=== PATIENT | male | born 1945 | race Caucasian/White ===

== ENCOUNTER 2017-09-30 10:22 | Inpatient (IN) | payer OTHER, MEDICARE ==
[2017-09-30] MEDS ORDERED: Ibuprofen 200 MG Tab PO PRN (12:27)
[2017-09-30] MEDS ORDERED: Sodium Chloride 0.9% 10 ML Syringe FLUSH PRN (12:27)
[2017-09-30] MEDS ORDERED: Temazepam 15 MG Cap PO PRN (12:27)
[2017-09-30] MEDS ORDERED: Acetaminophen 325 MG Tab PO PRN (12:27)
[2017-09-30] MEDS ORDERED: NS + KCl 20mEq/L 1,000 ML IV SCH (12:30)
[2017-09-30] MEDS: Gabapentin 300 MG Cap PO SCH ×2 (13:15→20:03)
[2017-09-30] MEDS: Clindamycin Phosphate in D5W 300 MG in Premix Bag 1 BAG IV SCH ×4 (13:26→18:24)
[2017-09-30 13:34] LABS: CHLORIDE,CL 97 mEq/L (98-106); SODIUM,NA 133 mEq/L (136-145)
[2017-09-30] MEDS: Sodium Chloride 0.9% 1,000 ML IV SCH (14:24)
[2017-09-30] MEDS: Enoxaparin 40 MG/0.4 ML Syringe SUBCUT SCH (14:26)
[2017-09-30] MEDS ORDERED: METFORMIN HCL PO SCH (20:00)
[2017-09-30] MEDS ORDERED: GLYBURIDE PO SCH (20:00)
[2017-10-01] MEDS: Clindamycin Phosphate in D5W 300 MG in Premix Bag 1 BAG IV SCH ×8 (00:23→17:59)
[2017-10-01] MEDS: Sodium Chloride 0.9% 1,000 ML IV SCH ×2 (04:22→20:10)
[2017-10-01 07:19] LABS: CHLORIDE,CL 103 mEq/L (98-106); SODIUM,NA 136 mEq/L (136-145)
[2017-10-01] MEDS: Lisinopril 10 MG Tab PO SCH (07:37)
[2017-10-01] MEDS: Levothyroxine 112 MCG Tab PO SCH (07:37)
[2017-10-01] MEDS: Gabapentin 300 MG Cap PO SCH ×3 (07:37→20:09)
[2017-10-01] MEDS: Aspirin 81 MG Tab.Chew PO SCH (07:37)
[2017-10-01] MEDS ORDERED: metFORMIN 500 MG Tab PO SCH (08:00)
[2017-10-01] MEDS ORDERED: glyBURIDE 5 MG Tab PO SCH (08:00)
[2017-10-01] MEDS: Hydrocortisone 1% Crm 30 GM Tube TOP PRN (10:47)
[2017-10-01] MEDS: Enoxaparin 40 MG/0.4 ML Syringe SUBCUT SCH (11:45)
--- NOTE | 2017-10-01 14:58 | PCM.PN ---
- General Info Date of Service: 10/01/17 Functional Status: Reports: Pain Controlled, Tolerating Diet, Ambulating - Review of Systems General: Denies: Fever, Weakness, Fatigue HEENT: Reports: No Symptoms Pulmonary: Denies: Shortness of Breath, Cough Cardiovascular: Denies: Chest Pain, Edema, Lightheadedness Gastrointestinal: Denies: Abdominal Pain, Nausea, Vomiting Genitourinary: Reports: No Symptoms Musculoskeletal: Reports: Leg Pain Skin: Reports: Other (redness to RLE) Neurological: Reports: No Symptoms - Patient Data Vitals - Most Recent: Last Vital Signs Temp 97.7 F 10/01/17 11:52 Pulse 68 10/01/17 11:52 Resp 18 10/01/17 11:52 BP 127/75 10/01/17 11:52 Pulse Ox 100 10/01/17 11:52 Weight - Most Recent: 219 lb 5.759 oz I&O - Last 24 Hours: Intake & Output 09/30/17 10/01/17 10/01/17 22:59 06:59 14:59 Intake Total 50 1100 Balance 50 1100 Lab Results Last 24 Hours: Laboratory Results - last 24 hr 09/30/17 10/01/17 10/01/17 Range/Units 16:56 07:05 07:05 WBC 8.2 (5.0-10.0) 10^3/uL RBC 3.99 L (4.50-6.00) 10^6/uL Hgb 11.8 L (14.0-18.0) g/dL Hct 35.1 L (40.0-54.0) % MCV 88.0 (82.0-94.0) fL MCH 29.6 (27.0-32.0) pg MCHC 33.6 (33.0-38.0) g/dL RDW Coeff of Kate 12.6 (11.0-15.0) % Plt Count 348 (150-400) 10^3/uL Neut % (Auto) 77.6 (35-85) % Lymph % (Auto) 13.7 (10-55) % [place] % (Auto) 7.0 (0-16) % Eos % (Auto) 1.2 (0-5) % Baso % (Auto) 0.5 (0-3) % Neut # (Auto) 6.36 (1.80-7.00) 10^3/uL Lymph # (Auto) 1.12 (1.00-4.80) 10^3/uL [place] # (Auto) 0.57 (0.00-0.80) 10^3/uL Eos # (Auto) 0.10 (0.00-0.45) 10^3/uL Baso # (Auto) 0.04 10^3/uL Sodium 136 (136-145) mEq/L Potassium 5.2 H (3.5-5.0) mEq/L Chloride 103 (98-106) mEq/L Carbon Dioxide 31 (21-32) mmol/L BUN 16 (7-18) mg/dL Creatinine 1.0 (0.7-1.3) mg/dL Est Cr Clr Drug Dosing 89.33 mL/min Estimated GFR (MDRD) > 60 (>=60) mL/min Glucose 180 H D (75-99) mg/dL POC Glucose 277 H (75-105) mg/dl Calcium 8.4 (8.4-10.1) mg/dL C-Reactive Protein 0.7 (0.2-0.8) mg/dL 10/01/17 10/01/17 Range/Units 07:37 11:44 WBC (5.0-10.0) 10^3/uL RBC (4.50-6.00) 10^6/uL Hgb (14.0-18.0) g/dL Hct (40.0-54.0) % MCV (82.0-94.0) fL MCH (27.0-32.0) pg MCHC (33.0-38.0) g/dL RDW Coeff of Kate (11.0-15.0) % Plt Count (150-400) 10^3/uL Neut % (Auto) (35-85) % Lymph % (Auto) (10-55) % [place] % (Auto) (0-16) % Eos % (Auto) (0-5) % Baso % (Auto) (0-3) % Neut # (Auto) (1.80-7.00) 10^3/uL Lymph # (Auto) (1.00-4.80) 10^3/uL [place] # (Auto) (0.00-0.80) 10^3/uL Eos # (Auto) (0.00-0.45) 10^3/uL Baso # (Auto) 10^3/uL Sodium (136-145) mEq/L Potassium (3.5-5.0) mEq/L Chloride (98-106) mEq/L Carbon Dioxide (21-32) mmol/L BUN (7-18) mg/dL Creatinine (0.7-1.3) mg/dL Est Cr Clr Drug Dosing mL/min Estimated GFR (MDRD) (>=60) mL/min Glucose (75-99) mg/dL POC Glucose 195 H 224 H (75-105) mg/dl Calcium (8.4-10.1) mg/dL C-Reactive Protein (0.2-0.8) mg/dL Med Orders - Current: Current Medications Acetaminophen (Tylenol) 650 mg PO Q4H PRN PRN Reason: Pain (Mild 1-3)/fever Aspirin (Aspirin) 81 mg PO DAILY [facility] Last Admin: 10/01/17 07:37 Dose: 81 mg Enoxaparin Sodium (Lovenox) 40 mg SUBCUT DAILY@1200 [facility] Last Admin: 10/01/17 11:45 Dose: 40 mg Gabapentin (Neurontin) 300 mg PO TID [facility] Last Admin: 10/01/17 14:47 Dose: 300 mg Glyburide (Micronase) 10 mg PO BID [facility] Hydrocortisone (Hydrocortisone 1% Crm) 0 gm TOP ASDIRECTED PRN PRN Reason: Itching Last Admin: 10/01/17 10:47 Dose: 1 applic Clindamycin Phosphate 300 mg/ (Premix) 50 mls @ 100 mls/hr IV Q6H [facility] Last Admin: 10/01/17 11:45 Dose: 100 mls/hr Sodium Chloride (Normal Saline) 1,000 mls @ 75 mls/hr IV ASDIRECTED [facility] Last Admin: 10/01/17 04:22 Dose: 75 mls/hr Ibuprofen (Motrin) 400 mg PO Q6H PRN PRN Reason: Pain (mild 1-3) Levothyroxine Sodium (Levothyroxine) 112 mcg PO DAILY [facility] Last Admin: 10/01/17 07:37 Dose: 112 mcg Lisinopril (Prinivil) 10 mg PO DAILY [facility] Last Admin: 10/01/17 07:37 Dose: 10 mg Metformin HCl (Glucophage) 1,000 mg PO BID [facility] Sodium Chloride (Saline Flush) 10 ml FLUSH ASDIRECTED PRN PRN Reason: Keep Vein Open Temazepam (Restoril) 15 mg PO BEDTIME PRN PRN Reason: Sleep Discontinued Medications Glyburide (Micronase) 5 mg PO DAILY [facility] Last Admin: 10/01/17 07:37 Dose: 5 mg Potassium Chloride/Sodium Chloride (Normal Saline With 20 Meq Kcl) 1,000 mls @ 75 mls/hr IV ASDIRECTED [facility] Last Admin: 09/30/17 13:22 Dose: 75 mls/hr Metformin HCl (Glucophage) 500 mg PO DAILY [facility] Last Admin: 10/01/17 07:37 Dose: 500 mg Non-Formulary Medication (Glyburide/Metformin Hcl [Glucovance 5-500 Mg]) 2 each PO BID [facility] - Exam General: Alert, Oriented HEENT: Mucous Membr. Moist/[place] Neck: Supple Lungs: Clear to Auscultation, Normal Respiratory Effort Cardiovascular: Regular Rate, Regular Rhythm GI/Abdominal Exam: Normal Bowel Sounds, Soft, Non-Tender Extremities: Other (redness is mildly improved from yesterday, nontender. Does have venous stasis changes to leg) Neurological: No New Focal Deficit - Problem List & Annotations (1) Cellulitis of right leg SNOMED Code(s): 428401746 Code(s): L03.115 - CELLULITIS OF RIGHT LOWER LIMB Status: Acute Priority : High Current Visit: Yes - Problem List Review Problem List Initiated/Reviewed/Updated: Yes - My Orders Last 24 Hours: My Active Orders 10/01/17 09:02 Hydrocortisone [Hydrocortisone 1% Crm] 0 gm TOP ASDIRECTED PRN 10/01/17 20:00 glyBURIDE [Micronase] 10 mg PO BID metFORMIN [Glucophage] 1,000 mg PO BID 10/02/17 05:11 BASIC METABOLIC PANEL,BMP [CHEM] AM C-REACTIVE PROTEIN [CHEM] AM CBC WITH AUTO DIFF [HEME] AM - Assessment Assessment:: RLE Cellulitis - Plan Plan:: Patient doing well. Afebrile. Has mild pain in his right leg. Area of redness on leg has improved from yesterday. Nontender. Is ambulating well without difficulty. Labs are stable. WBC is 8.2, CRP 0.7. Will continue IV Cleocin. Elevate leg. Repeat labs in am.
[2017-10-01] MEDS: glyBURIDE 5 MG Tab PO SCH (18:00)
[2017-10-01] MEDS: metFORMIN 500 MG Tab PO SCH (18:00)
[2017-10-02] MEDS: Clindamycin Phosphate in D5W 300 MG in Premix Bag 1 BAG IV SCH ×10 (00:29→23:58)
[2017-10-02 07:09] LABS: CHLORIDE,CL 103 mEq/L (98-106); SODIUM,NA 136 mEq/L (136-145)
[2017-10-02] MEDS: Levothyroxine 112 MCG Tab PO SCH (07:32)
[2017-10-02] MEDS: Lisinopril 10 MG Tab PO SCH (07:33)
[2017-10-02] MEDS: Aspirin 81 MG Tab.Chew PO SCH (07:33)
[2017-10-02] MEDS: metFORMIN 500 MG Tab PO SCH ×2 (07:33→17:20)
[2017-10-02] MEDS: glyBURIDE 5 MG Tab PO SCH ×2 (07:34→17:20)
[2017-10-02] MEDS: Gabapentin 300 MG Cap PO SCH ×3 (07:34→19:50)
[2017-10-02] MEDS: Hydrocortisone 1% Crm 30 GM Tube TOP PRN (10:07)
--- NOTE | 2017-10-02 12:09 | PCM.PN ---
- General Info Date of Service: 10/02/17 Admission Dx/Problem (Free Text): Cellulitis to RLE Functional Status: Reports: Pain Controlled, Tolerating Diet, Ambulating - Review of Systems General: Denies: Fever, Weakness, Fatigue HEENT: Reports: No Symptoms Pulmonary: Reports: No Symptoms Cardiovascular: Reports: No Symptoms Musculoskeletal: Reports: Leg Pain Skin: Reports: Dryness, Other (redness improving to leg) Neurological: Reports: No Symptoms - Patient Data Vitals - Most Recent: Last Vital Signs Temp 97.7 F 10/02/17 07:43 Pulse 68 10/02/17 07:43 Resp 18 10/02/17 07:43 BP 121/65 10/02/17 07:43 Pulse Ox 98 10/02/17 07:43 Weight - Most Recent: 219 lb 5.759 oz I&O - Last 24 Hours: Intake & Output 10/01/17 10/02/17 10/02/17 22:59 06:59 14:59 Intake Total 1050 50 Balance 1050 50 Lab Results Last 24 Hours: Laboratory Results - last 24 hr 10/01/17 10/02/17 10/02/17 Range/Units 16:56 06:50 06:50 WBC 7.1 (5.0-10.0) 10^3/uL RBC 3.92 L (4.50-6.00) 10^6/uL Hgb 11.5 L (14.0-18.0) g/dL Hct 34.9 L (40.0-54.0) % MCV 89.0 (82.0-94.0) fL MCH 29.3 (27.0-32.0) pg MCHC 33.0 (33.0-38.0) g/dL RDW Coeff of Kate 12.7 (11.0-15.0) % Plt Count 327 (150-400) 10^3/uL Neut % (Auto) 72.7 (35-85) % Lymph % (Auto) 16.5 (10-55) % [place] % (Auto) 8.3 (0-16) % Eos % (Auto) 1.8 (0-5) % Baso % (Auto) 0.7 (0-3) % Neut # (Auto) 5.19 (1.80-7.00) 10^3/uL Lymph # (Auto) 1.18 (1.00-4.80) 10^3/uL [place] # (Auto) 0.59 (0.00-0.80) 10^3/uL Eos # (Auto) 0.13 (0.00-0.45) 10^3/uL Baso # (Auto) 0.05 10^3/uL Sodium 136 (136-145) mEq/L Potassium 4.9 (3.5-5.0) mEq/L Chloride 103 (98-106) mEq/L Carbon Dioxide 31 (21-32) mmol/L BUN 17 (7-18) mg/dL Creatinine 1.0 (0.7-1.3) mg/dL Est Cr Clr Drug Dosing 89.33 mL/min Estimated GFR (MDRD) > 60 (>=60) mL/min Glucose 166 H (75-99) mg/dL POC Glucose 243 H (75-105) mg/dl Calcium 8.3 L (8.4-10.1) mg/dL C-Reactive Protein 0.8 (0.2-0.8) mg/dL Med Orders - Current: Current Medications Acetaminophen (Tylenol) 650 mg PO Q4H PRN PRN Reason: Pain (Mild 1-3)/fever Aspirin (Aspirin) 81 mg PO DAILY [facility] Last Admin: 10/02/17 07:33 Dose: 81 mg Enoxaparin Sodium (Lovenox) 40 mg SUBCUT DAILY@1200 [facility] Last Admin: 10/01/17 11:45 Dose: 40 mg Gabapentin (Neurontin) 300 mg PO TID [facility] Last Admin: 10/02/17 07:34 Dose: 300 mg Glyburide (Micronase) 10 mg PO BIDMEALS [facility] Last Admin: 10/02/17 07:34 Dose: 10 mg Hydrocortisone (Hydrocortisone 1% Crm) 0 gm TOP ASDIRECTED PRN PRN Reason: Itching Last Admin: 10/02/17 10:07 Dose: 1 applic Clindamycin Phosphate 300 mg/ (Premix) 50 mls @ 100 mls/hr IV Q6H [facility] Last Admin: 10/02/17 06:18 Dose: 100 mls/hr Sodium Chloride (Normal Saline) 1,000 mls @ 30 mls/hr IV ASDIRECTED [facility] Last Admin: 10/01/17 20:10 Dose: 75 mls/hr Ibuprofen (Motrin) 400 mg PO Q6H PRN PRN Reason: Pain (mild 1-3) Levothyroxine Sodium (Levothyroxine) 112 mcg PO DAILY [facility] Last Admin: 10/02/17 07:32 Dose: 112 mcg Lisinopril (Prinivil) 10 mg PO DAILY [facility] Last Admin: 10/02/17 07:33 Dose: 10 mg Metformin HCl (Glucophage) 1,000 mg PO BIDMEALS [facility] Last Admin: 10/02/17 07:33 Dose: 1,000 mg Sodium Chloride (Saline Flush) 10 ml FLUSH ASDIRECTED PRN PRN Reason: Keep Vein Open Temazepam (Restoril) 15 mg PO BEDTIME PRN PRN Reason: Sleep Discontinued Medications Glyburide (Micronase) 5 mg PO DAILY [facility] Last Admin: 10/01/17 07:37 Dose: 5 mg Potassium Chloride/Sodium Chloride (Normal Saline With 20 Meq Kcl) 1,000 mls @ 75 mls/hr IV ASDIRECTED [facility] Last Admin: 09/30/17 13:22 Dose: 75 mls/hr Metformin HCl (Glucophage) 500 mg PO DAILY [facility] Last Admin: 10/01/17 07:37 Dose: 500 mg Non-Formulary Medication (Glyburide/Metformin Hcl [Glucovance 5-500 Mg]) 2 each PO BID [facility] - Exam General: Alert, Oriented HEENT: Mucous Membr. Moist/[place] Neck: Supple Lungs: Clear to Auscultation, Normal Respiratory Effort Cardiovascular: Regular Rate, Regular Rhythm GI/Abdominal Exam: Normal Bowel Sounds, Soft, Non-Tender Extremities: Normal Inspection, Pedal Edema (1+ RLE), Other (RLE does get dusky when dependent but improves with ambulation and elevation. Does still have a strong pedal pulse with dependency. ) - Problem List & Annotations (1) Cellulitis of right leg SNOMED Code(s): 969844526 Code(s): L03.115 - CELLULITIS OF RIGHT LOWER LIMB Status: Acute Priority : High Current Visit: Yes - Problem List Review Problem List Initiated/Reviewed/Updated: Yes - My Orders Last 24 Hours: My Active Orders 10/01/17 18:15 glyBURIDE [Micronase] 10 mg PO BIDMEALS metFORMIN [Glucophage] 1,000 mg PO BIDMEALS - Assessment Assessment:: RLE Cellulitis - Plan Plan:: Patient doing well. Afebrile. Has mild pain in his right leg. Area of redness on leg has improved from yesterday. Nontender. Is ambulating well without difficulty. Labs are stable. WBC is 8.2, CRP 0.7. Will continue IV Cleocin. Elevate leg. Repeat labs in am. 10-02-2017 Patient doing well. Ambulating in the halls. Area of redness continues to improve. Skin very dry, scaly. Leg does get glenny in color with dependency but palpable pulse still noted. Labs are stable, continue to improve. WBC 7.1. CRP stable at 0.8. Will continue with IV Cleocin. Probable discharge home on oral meds tomorrow.
[2017-10-02] MEDS: Enoxaparin 40 MG/0.4 ML Syringe SUBCUT SCH (12:22)
[2017-10-03] MEDS: Clindamycin Phosphate in D5W 300 MG in Premix Bag 1 BAG IV SCH ×2 (06:00)
[2017-10-03] MEDS: metFORMIN 500 MG Tab PO SCH (07:25)
[2017-10-03] MEDS: Aspirin 81 MG Tab.Chew PO SCH (07:25)
[2017-10-03] MEDS: glyBURIDE 5 MG Tab PO SCH (07:26)
[2017-10-03] MEDS: Levothyroxine 112 MCG Tab PO SCH (07:26)
[2017-10-03] MEDS: Lisinopril 10 MG Tab PO SCH (07:27)
[2017-10-03] MEDS: Gabapentin 300 MG Cap PO SCH (07:27)
--- NOTE | 2017-10-04 19:35 | PCM.DCSUM1 ---
Discharge Summary - Hospital Course Free Text/Narrative:: Patient presented to clinic for hospital follow up with Jared Santiago. Had been at [facility] for cellulitis in his leg and sepsis. He was hospitalized for 6 days and was on IV antibiotics. Was discharged home on Cephalexin for the last 6 days. He had noted increased swelling and redness increasing in his leg. No fevers. While at [facility], he did have a low potassium and phosphorus level. WBC elevated at 13.3, CRP 1.2. Potassium normal at 5.0. Admitted and started on IV Cleocin Diagnosis: Stroke: No - Discharge Data Discharge Date: 10/03/17 Discharge Disposition: Home, Self-Care 01 Condition: Good - Discharge Diagnosis/Problem(s) (1) Cellulitis of right leg SNOMED Code(s): 758444312 ICD Code: L03.115 - CELLULITIS OF RIGHT LOWER LIMB Status: Acute Priority : High - Patient Summary/Data Complications: none Consults: Consultations 09/30/17 12:27 PT Evaluation and Treatment [CONS] Routine Hospital Course: Patient has had good improvement of the infection in his leg. He has less redness, swelling and warmth. His leg does get glenny when up and dependent but improves with elevation. Good pulses noted. Skin to right lower extremity is dry, scaly but has been since developed infection several weeks ago per . He is ambulating without difficulty. Afebrile. Labs have improved, WBC normal now, CRP 0.7. - Patient Instructions Diet: Diabetic Diet Activity: As Tolerated - Discharge Plan *PRESCRIPTION DRUG MONITORING PROGRAM REVIEWED*: No *COPY OF PRESCRIPTION DRUG MONITORING REPORT IN PATIENT NIKOLAS: No Prescriptions/Med Rec: Clindamycin HCl [Cleocin HCl] 300 mg PO QID #28 capsule Home Medications: Home Meds Aspirin 81 mg PO DAILY 02/26/15 [History] Gabapentin [Neurontin] 300 mg PO TID 02/26/15 [History] Levothyroxine Sodium [Synthroid] 112 mcg PO DAILY 02/26/15 [History] Lisinopril [Prinivil] 10 mg PO DAILY 02/26/15 [History] Multivitamin/Iron/Folic Acid [Multi-Day Plus Iron Tablet] 1 tab PO DAILY [History] Vitamin E 1,000 unit PO DAILY 02/26/15 [History] glyBURIDE/Metformin HCl [Glucovance 5-500 MG] 2 each PO BID 02/26/15 [History] Clindamycin HCl [Cleocin HCl] 300 mg PO QID #28 capsule 10/03/17 [Rx] - Discharge Summary/Plan Comment DC Time >30 min.: No Discharge Summary/Plan Comment: Discharge home on Cleocin. Follow up with plastic surgeon per their direction. - General Info Date of Service: 10/03/17 Admission Dx/Problem (Free Text: Cellulitis to RLE Functional Status: Reports: Pain Controlled, Tolerating Diet, Ambulating - Review of Systems General: Denies: Fever, Weakness, Fatigue HEENT: Reports: No Symptoms Pulmonary: Denies: Shortness of Breath, Cough Cardiovascular: Denies: Chest Pain, Edema, Lightheadedness Gastrointestinal: Denies: Abdominal Pain, Nausea, Vomiting Genitourinary: Reports: No Symptoms Musculoskeletal: Reports: Leg Pain Skin: Reports: Other (redness noted to RLE, no swelling. Skin dry and scaly) Neurological: Reports: No Symptoms - Patient Data Vitals - Most Recent: Last Vital Signs Temp 97.8 F 10/03/17 07:43 Pulse 75 10/03/17 07:43 Resp 16 10/03/17 07:43 BP 137/71 10/03/17 07:43 Pulse Ox 99 10/03/17 07:43 Weight - Most Recent: 219 lb 5.759 oz Med Orders - Current: Current Medications Discontinued Medications Acetaminophen (Tylenol) 650 mg PO Q4H PRN PRN Reason: Pain (Mild 1-3)/fever Aspirin (Aspirin) 81 mg PO DAILY [facility] Last Admin: 10/03/17 07:25 Dose: 81 mg Enoxaparin Sodium (Lovenox) 40 mg SUBCUT DAILY@1200 [facility] Last Admin: 10/02/17 12:22 Dose: 40 mg Gabapentin (Neurontin) 300 mg PO TID [facility] Last Admin: 10/03/17 07:27 Dose: 300 mg Glyburide (Micronase) 5 mg PO DAILY [facility] Last Admin: 10/01/17 07:37 Dose: 5 mg Glyburide (Micronase) 10 mg PO BIDMEALS [facility] Last Admin: 10/03/17 07:26 Dose: 10 mg Hydrocortisone (Hydrocortisone 1% Crm) 0 gm TOP ASDIRECTED PRN PRN Reason: Itching Last Admin: 10/02/17 10:07 Dose: 1 applic Clindamycin Phosphate 300 mg/ (Premix) 50 mls @ 100 mls/hr IV Q6H [facility] Last Admin: 10/03/17 06:00 Dose: 100 mls/hr Potassium Chloride/Sodium Chloride (Normal Saline With 20 Meq Kcl) 1,000 mls @ 75 mls/hr IV ASDIRECTED [facility] Last Admin: 09/30/17 13:22 Dose: 75 mls/hr Sodium Chloride (Normal Saline) 1,000 mls @ 30 mls/hr IV ASDIRECTED [facility] Last Admin: 10/01/17 20:10 Dose: 75 mls/hr Ibuprofen (Motrin) 400 mg PO Q6H PRN PRN Reason: Pain (mild 1-3) Levothyroxine Sodium (Levothyroxine) 112 mcg PO DAILY [facility] Last Admin: 10/03/17 07:26 Dose: 112 mcg Lisinopril (Prinivil) 10 mg PO DAILY [facility] Last Admin: 10/03/17 07:27 Dose: 10 mg Metformin HCl (Glucophage) 500 mg PO DAILY [facility] Last Admin: 10/01/17 07:37 Dose: 500 mg Metformin HCl (Glucophage) 1,000 mg PO BIDMEALS [facility] Last Admin: 10/03/17 07:25 Dose: 1,000 mg Non-Formulary Medication (Glyburide/Metformin Hcl [Glucovance 5-500 Mg]) 2 each PO BID [facility] Sodium Chloride (Saline Flush) 10 ml FLUSH ASDIRECTED PRN PRN Reason: Keep Vein Open Temazepam (Restoril) 15 mg PO BEDTIME PRN PRN Reason: Sleep - Exam General: Reports: Alert, Oriented HEENT: Reports: Mucous Membr. Moist/[place] Neck: Reports: Supple Lungs: Reports: Clear to Auscultation, Normal Respiratory Effort Cardiovascular: Reports: Regular Rate, Regular Rhythm GI/Abdominal Exam: Normal Bowel Sounds, Soft, Non-Tender Extremities: Increased Warmth, Redness Skin: Reports: Warm, Dry Neurological: Reports: No New Focal Deficit
== END 2017-10-03 10:20 | disposition home or self-care (01) | DRG 603 ==
LOC: CC.FCMC 10:22 → CC.MS 10:22 → UNDOADMIN 11:34 → CC.MS 11:34
PROVIDERS: ADMIT Physician Assistant Medical; ATTEND Family Medicine
DX: L03.115 Cellulitis of right lower limb (principal); F41.8 Other specified anxiety disorders; I10 Essential (primary) hypertension; E03.9 Hypothyroidism, unspecified; H91.93 Unspecified hearing loss, bilateral; E11.9 Type 2 diabetes mellitus without complications; Z79.899 Other long term (current) drug therapy; Z79.84 Long term (current) use of oral hypoglycemic drugs; Z79.82 Long term (current) use of aspirin
CPT/HCPCS: 36415; 80048; 80053; 81001; 82962; 84100; 85025; 86140; A9270-GY; J1650; J3480; J3490; J7030